=== PATIENT | male | born 1995 | race Two or more races ===

== ENCOUNTER 2022-12-07 21:13 | Emergency (ER) | payer OTHER ==
[~2022-12-07] VITALS: Ht 177.8 cm; Wt 68.0 kg
[~2022-12-07 21:13] MED LIST: KETO10TA2 PO
[2022-12-08] MEDS ORDERED: KETO10TA2 PO (01:03)
== END 2022-12-08 01:57 | disposition home or self-care (01) ==
LOC: ER 21:13
DX: S42.001A Fracture of unspecified part of right clavicle, initial encounter for closed fracture (principal); W19.XXXA Unspecified fall, initial encounter; Y93.89 Activity, other specified; Y92.89 Other specified places as the place of occurrence of the external cause; Y99.8 Other external cause status

== ENCOUNTER 2023-01-20 18:08 | Emergency (ER) | payer OTHER ==
[~2023-01-20] VITALS: Ht 167.6 cm; Wt 63.5 kg
== END 2023-01-21 00:41 | disposition home or self-care (01) ==
LOC: ER 18:09
DX: S42.031A Displaced fracture of lateral end of right clavicle, initial encounter for closed fracture (principal); V29.99XA Rider (driver) (passenger) of other motorcycle injured in unspecified traffic accident, initial encounter; Y93.55 Activity, bike riding; Y92.413 State road as the place of occurrence of the external cause